=== PATIENT | male | born 1955 | race Caucasian/White ===

== ENCOUNTER 2023-03-22 05:01 | Inpatient (IN) | payer MEDICARE, OTHER ==
[2023-03-22] MEDS ORDERED: Sodium Chloride 0.9% 10 ML Syringe FLUSH PRN ×2 (05:39→10:50)
[2023-03-22] MEDS ORDERED: Sodium Chloride 0.9% 2.5 ML Syringe FLUSH PRN ×2 (05:39→10:50)
[2023-03-22 06:21] LABS: HEMOGLOBIN 15.5 g/dL (13.0-17.0); MEAN CORPUSCULAR HEMOGLOBIN 31.1 pg (27.0-32.0); MEAN CORPUSCULAR HGB CONC 34.4 g/dL (31.0-37.0); MEAN CORPUSCULAR VOLUME 90.2 fL (80.0-98.0); PLATELET COUNT,PLT 191 K/uL (150-400); RED BLOOD CELL COUNT 4.99 M/uL (4.50-5.90); WHITE BLOOD CELL COUNT,WBC 8.13 K/uL (4.0-11.0)
[2023-03-22 06:42] LABS: INR 0.99 (0.86-1.11)
[2023-03-22 06:48] LABS: ALBUMIN 3.5 g/dL (3.4-5.0); BILIRUBIN TOTAL 1.2 mg/dL (0.2-1.0); CARBON DIOXIDE,CO2 26.1 mmol/L (21.0-32.0); CREATININE 1.3 mg/dL (0.8-1.3); EST CRCL DRUG DOSING (CG) 60.34 mL/min; LACTIC ACID 1.2 mmol/L (0.4-2.0); POTASSIUM,K 4.8 mmol/L (3.5-5.1); PROTEIN TOTAL,TP 6.9 g/dL (6.4-8.2)
[2023-03-22 06:57] LABS: APPEARANCE,URINE CLEAR; BILIRUBIN,URINE NEGATIVE (NEGATIVE); COLOR,URINE YELLOW; GLUCOSE,URINE NEGATIVE (NEGATIVE); KETONES,URINE NEGATIVE (NEGATIVE); LEUKOCYTE ESTERASE,URINE NEGATIVE (NEGATIVE); NITRITE,URINE NEGATIVE (NEGATIVE); OCCULT BLOOD,URINE NEGATIVE (NEGATIVE); PH,URINE 5.5 (5.0-8.0); PROTEIN,URINE NEGATIVE (NEGATIVE); UROBILINOGEN,URINE 0.2 EU/dL (<2.0)
[2023-03-22 07:03] LABS: EOSINOPHILS ABSOLUTE MAN 1.7 (0.0-0.7); EOSINOPHILS PERCENT MAN 21 % (0.0-7.0); LYMPHOCYTES ABSOLUTE MAN 2.1 (0.6-2.4); LYMPHOCYTES PERCENT MAN 26 % (16.0-40.0); MONOCYTES ABSOLUTE MAN 0.8 (0.0-0.8); MONOCYTES PERCENT MAN 10 % (0.0-15.0); SEG NEUTROPHILS ABSOLUTE MAN 3.5 (1.4-5.7); SEG NEUTROPHILS PERCENT MAN 43 % (48.0-80.0)
[2023-03-22] MEDS ORDERED: Albuterol/Ipratropium 3.0-0.5 MG/3 ML Neb Soln NEB ONE (07:07)
[2023-03-22] MEDS ORDERED: Iopamidol 755 MG/ML 500 ML Multipack Bottle IVPUSH ONE (07:20)
[2023-03-22] MEDS ORDERED: Heparin Sodium 5,000 Units/ML Vial IVPUSH ONE (09:16)
[2023-03-22] MEDS ORDERED: Heparin Sodium/0.45% NaCl 500 ML IV SCH ×2 (09:30→10:45)
[2023-03-22] MEDS ORDERED: Heparin Sodium 5,000 Units/ML Vial IVPUSH PRN (10:40)
[2023-03-22] MEDS ORDERED: Morphine 2 MG/ML SYRINGE IVPUSH PRN (10:49)
[2023-03-22] MEDS ORDERED: Acetaminophen 325 MG Tab PO PRN (10:49)
[2023-03-22] MEDS ORDERED: oxyCODONE 5 MG Tab PO PRN (10:49)
[2023-03-22] MEDS ORDERED: Naloxone 0.4 MG/ML SDV IVPUSH PRN (10:50)
[2023-03-22] MEDS ORDERED: Docusate Sodium 100 MG Cap PO PRN (10:50)
[2023-03-22] MEDS ORDERED: Ondansetron 4 MG/2 ML SDV IVPUSH PRN (10:50)
[2023-03-22] MEDS: guaiFENesin/Dextromethorphan 100-10 MG/5 ML Soln 10 ML Cup PO PRN ×2 (13:57→19:53)
[2023-03-22] MEDS: Benzonatate 100 MG Cap PO PRN (17:45)
[2023-03-22] MEDS: Pravastatin 40 MG Tab PO SCH (21:34)
[2023-03-23] MEDS: Benzonatate 100 MG Cap PO PRN ×4 (01:10→18:36)
[2023-03-23] MEDS: guaiFENesin/Dextromethorphan 100-10 MG/5 ML Soln 10 ML Cup PO PRN (03:35)
[2023-03-23 03:40] LABS: BASOPHILS PERCENT AUTO 0.5 % (0.0-1.5); EOSINOPHILS ABSOLUTE AUTO 1.5 K/uL (0.0-0.7); EOSINOPHILS PERCENT AUTO 19.3 % (0.0-7.0); HEMATOCRIT 45.4 % (38.0-50.0); HEMOGLOBIN 15.6 g/dL (13.0-17.0); LYMPHOCYTES ABSOLUTE AUTO 2.4 K/uL (0.6-2.4); LYMPHOCYTES PERCENT AUTO 31.9 % (16.0-40.0); MEAN CORPUSCULAR HEMOGLOBIN 30.7 pg (27.0-32.0); MEAN CORPUSCULAR HGB CONC 34.4 g/dL (31.0-37.0); MEAN CORPUSCULAR VOLUME 89.4 fL (80.0-98.0); MONOCYTES ABSOLUTE AUTO 0.9 K/uL (0.0-0.8); MONOCYTES PERCENT AUTO 11.3 % (0.0-15.0); NEUTROPHILS ABSOLUTE AUTO 2.8 K/uL (1.4-5.7); NRBC ABSOLUTE 0 K/uL; PLATELET COUNT,PLT 210 K/uL (150-400); RED BLOOD CELL COUNT 5.08 M/uL (4.50-5.90); WHITE BLOOD CELL COUNT,WBC 7.58 K/uL (4.0-11.0)
[2023-03-23 04:01] LABS: CALCIUM 9.3 mg/dL (8.5-10.1); CARBON DIOXIDE,CO2 20.9 mmol/L (21.0-32.0); CREATININE 1.2 mg/dL (0.8-1.3); EST CRCL DRUG DOSING (CG) 65.36 mL/min; POTASSIUM,K 4.4 mmol/L (3.5-5.1)
[2023-03-23] MEDS ORDERED: Heparin Sodium/0.45% NaCl 500 ML IV SCH (08:30)
[2023-03-23] MEDS: Codeine/guaiFENesin 10-100 MG/5 ML Syrup 5 ML Cup PO PRN ×3 (09:27→21:24)
[2023-03-23] MEDS: Pravastatin 40 MG Tab PO SCH (21:15)
[2023-03-24] MEDS: Benzonatate 100 MG Cap PO PRN ×5 (00:03→23:33)
[2023-03-24] MEDS: Codeine/guaiFENesin 10-100 MG/5 ML Syrup 5 ML Cup PO PRN ×4 (03:33→21:12)
[2023-03-24 03:54] LABS: CALCIUM 8.8 mg/dL (8.5-10.1); CARBON DIOXIDE,CO2 23.5 mmol/L (21.0-32.0); CREATININE 1.2 mg/dL (0.8-1.3); EST CRCL DRUG DOSING (CG) 65.36 mL/min; POTASSIUM,K 4.3 mmol/L (3.5-5.1)
[2023-03-24] MEDS ORDERED: Apixaban 5 MG Tab PO ONE (10:40)
[2023-03-24] MEDS ORDERED: Non-Formulary Medication 1 Each SCH (17:00)
[2023-03-24] MEDS: Apixaban 5 MG Tab PO SCH (18:09)
[2023-03-24] MEDS: Pravastatin 40 MG Tab PO SCH (21:11)
[2023-03-25] MEDS: Codeine/guaiFENesin 10-100 MG/5 ML Syrup 5 ML Cup PO PRN ×2 (04:03→10:04)
[2023-03-25] MEDS: Apixaban 5 MG Tab PO SCH (05:53)
[2023-03-25] MEDS: Benzonatate 100 MG Cap PO PRN ×2 (05:53→11:08)
== END 2023-03-25 12:58 | disposition home or self-care (01) | DRG 176 ==
LOC: MW.ED 05:01 → MW.MS 10:16
PROVIDERS: ADMIT Family Medicine; ATTEND Family Medicine
DX: I26.92 Saddle embolus of pulmonary artery without acute cor pulmonale (principal); I10 Essential (primary) hypertension; Z20.822 Contact with and (suspected) exposure to COVID-19; M10.9 Gout, unspecified; Z79.01 Long term (current) use of anticoagulants; Z87.01 Personal history of pneumonia (recurrent); Z87.891 Personal history of nicotine dependence; Z79.899 Other long term (current) drug therapy
CPT/HCPCS: 36415; 71045; 71045-26; 71275; 71275-26; 80048; 80053; 81003; 83605; 83880; 84484; 85025; 85610; 85730; 93005; 93010; 93306; 96365; 96376; 99222; 99232; 99239; 99284; 99285-25; A9270-GY; J1644; J3490; J7620-GY; Q9967; U0002